=== PATIENT | female | born 1995 ===

== ENCOUNTER → 2017-01-02 | Outpatient (REF) | LOC: WSOH 13:38 → WSPT 15:15 | DX: Z02.89 Encounter for other administrative examinations (principal) ==

== ENCOUNTER → 2017-01-29 | Outpatient (REF) | LOC: WSOH 11:00 | DX: Z23 Encounter for immunization (principal) ==

== ENCOUNTER → 2017-03-15 | Outpatient (REF) | LOC: WSOH 10:41 | DX: Z23 Encounter for immunization (principal) ==